=== PATIENT | female | born 1950 | race Caucasian/White ===

== ENCOUNTER 2020-11-30 11:22 | Emergency (ER) | payer SELFPAY ==
[2020-11-30] VITALS (15 sets, daily range): BP systolic 124–189; BP diastolic 76–96; PULSE 55–77; RESP 14–33; TEMP 36.2; O2SAT 95–100
--- NOTE | 2020-11-30 11:43 | DI.RAD.S_ITS ---
PROCEDURE: XR CHEST 1V INDICATIONS: chest pain TECHNIQUE: One view of the chest was acquired. COMPARISON: None. FINDINGS: Surgical changes and devices: None. Lungs and pleura: Lungs are clear. No pleural effusions or pneumothorax. Mediastinum: The cardiac contours are within normal limits. The aorta demonstrates calcification and tortuosity. Bones and chest wall: No suspicious bony lesions. Overlying soft tissues appear unremarkable. IMPRESSION: Portable chest within normal limits. Dictated by: Alex Martin M.D. on 11/30/2020 at 10:59 Approved by: Alex Martin M.D. on 11/30/2020 at 10:59
--- NOTE | 2020-11-30 11:51 | ED_ITS ---
HPI - Chest Pain General Chief Complaint: Chest Pain Stated Complaint: hot pain in chest, radiated to left arm Time Seen by Provider: 11/30/20 11:40 Source: patient Mode of arrival: Ambulatory Limitations: no limitations History of Present Illness HPI narrative: Patient is a 69-year-old female who is here for evaluation of burning in her chest. She states that she was woken last evening with burning in the center of her chest and also heaviness in her left arm. She states she thinks that is that it lasted approximately 30 minutes and then seemed to resolve. At some point it returned. She is unsure exactly when that was but she thought was some point this morning. She did admit that it was not as bad as what it was last evening. When she arrived here in the emergency department she stated that she was still having symptoms but by the time I evaluated her she thought the symptoms had completely resolved. She reports no other associated symptoms. Does not change with touching it. No change with moving. Has never had anything like this in the past. States she does have a history of high blood pressure but takes no medications for this. Related Data Home Medications Medication Instructions Recorded Confirmed calcium carb-vitamin D3 ER 600 mg 1 tab PO DAILY 11/30/20 11/30/20 (1,500 mg)-500 unit tablet,ER 24 hr Allergies Allergy/AdvReac Type Severity Reaction Status Date / Time No Known Drug Allergies Allergy Verified 11/30/20 11:41 Review of Systems Constitutional Constitutional: Denies fever(s) and Denies headache(s) Eyes Eyes: Reports system reviewed and no additional complaints, except as documented ENT Ears, Nose, Mouth, and Throat: Denies headache(s) Cardiovascular Cardiovascular: Reports as per HPI Respiratory Respiratory: Reports system reviewed and no additional complaints, except as doc umented Gastrointestinal Gastrointestinal: Reports system reviewed and no additional complaints, except as documented Genitourinary Genitourinary: Reports system reviewed and no additional complaints, except as documented Musculoskeletal Musculoskeletal: Reports system reviewed and no additional complaints, except as documented and Denies back pain Integumentary/Breasts Skin/Breast: Reports system reviewed and no additional complaints, except as documented Neurologic Neurologic: Denies headache(s) Endocrine Endocrine: Reports system reviewed and no additional complaints, except as documented Hematologic/Lymphatic On Anticoagulants: No Allergic/Immunologic Allergic/Immunologic: Reports system reviewed and no additional complaints, except as documented Patient History Medical History Hypertension Social History Smoking Status: Current every day smoker Smoking Status: Current every day smoker alcohol intake frequency: 0-2 drinks per day Substance Use Type: does not use Exam Initial Vital Signs Initial Vital Signs: Vital Signs Temperature 97.1 F L 11/30/20 11:36 Pulse Rate 70 11/30/20 11:36 Respiratory Rate 14 11/30/20 11:36 Blood Pressure 189/96 H 11/30/20 11:36 Pulse Oximetry 99 11/30/20 11:36 Const General: cooperative, comfortable and well developed HENMT Head: normal to inspection and normocephalic Resp Effort & Inspection: normal respiratory effort Auscultation: clear to auscultation bilaterally Cardio Rate: regular rate Rhythm: regular rhythm GI Inspection: normal to inspection Palpation: soft Skin General: no rashes or lesions noted Neuro General: patient alert, patient awake, patient oriented x3 and moves all extremities Extrem General: normal to inspection and capillary refill normal Psych Appearance: grossly normal and well kempt Scores HEART Score Heart Score history: Moderately Suspicious Heart Score EKG: Normal Heart Score Age: > or = 65 years old Heart Score risk factors: 1-2 risk factors Heart Score troponin: < or = to normal limit Heart Score Total: 4 Course Orders Ordered: ED Orders 11/30/20 11:43 XR chest 1V Stat Complete Blood Count AUTO DIFF Stat Comprehensive Metabolic Panel Stat Lipase Stat Magnesium Stat NT-proBNP (BNP-Adult 18+) Stat Troponin & CK Cardiac Panel Stat EKG-12 Lead Stat 11/30/20 12:25 COVID19 - ADMIT ([employer] swab/PCR) Stat 11/30/20 13:48 Troponin & CK Cardiac Panel Stat Discontinued Medications Aspirin (Aspirin 81 Mg Chew Tab) 324 mg PO NOW ONE Stop: 11/30/20 11:44 Last Admin: 11/30/20 12:02 Dose: 324 mg Documented by: MANUEL Nitroglycerin (Nitroglycerin 0.4 Mg Sl Tab) 0.4 mg SL [id number] PRN PRN Reason: Chest Pain Last Admin: 11/30/20 12:02 Dose: 0.4 mg Documented by: MANUEL Vital Signs Vital signs: Vital Signs - 8 hr 11/30/20 11:36 11/30/20 11:46 11/30/20 12:00 Temperature 97.1 F L Pulse Rate 70 70 63 Respiratory Rate 14 33 H 16 Blood Pressure 189/96 H Pulse Oximetry 99 100 98 11/30/20 12:06 11/30/20 12:15 11/30/20 12:20 Temperature Pulse Rate 70 77 66 Respiratory Rate 26 H 29 H 18 Blood Pressure 163/87 H 132/80 Pulse Oximetry 100 95 95 11/30/20 12:30 11/30/20 12:45 11/30/20 13:00 Temperature Pulse Rate 64 68 58 L Respiratory Rate 17 23 21 Blood Pressure 137/79 124/76 Pulse Oximetry 97 97 98 11/30/20 13:15 11/30/20 13:30 11/30/20 13:45 Temperature Pulse Rate 70 55 L 63 Respiratory Rate 28 H 19 24 Blood Pressure Pulse Oximetry 99 99 99 11/30/20 14:00 11/30/20 14:15 11/30/20 14:30 Temperature Pulse Rate 59 L 61 63 Respiratory Rate 23 17 20 Blood Pressure Pulse Oximetry 100 99 100 MDM - Chest Pain Lab Data Attestation: I reviewed the patient's lab results. Result diagrams: 11/30/20 11:43 11/30/20 11:43 Labs: Lab Results 11/30/20 11/30/20 11/30/20 Range/Units 11:43 11:43 11:43 WBC 5.0 (4.5-11.0) X10^3/uL RBC 4.83 (4.0-5.2) X10^6/uL Hgb 14.2 (12.0-16.0) g/dL Hct 42.5 (36-46) % MCV 87.8 (80-100) fL MCH 29.3 (26-34) PG MCHC 33.4 (30-36) % RDW 13.0 (11.6-14.8) % Plt Count 236 (150-400) X10^3/uL Neut % (Auto) 47.5 L (50-75) % Lymph % (Auto) 42.5 H (25-40) % [place] % (Auto) 6.6 (3-14) % Eos % (Auto) 3.2 (2-4) % Baso % (Auto) 0.2 (0-2) % Neut # (Auto) 2400 (3093-9653) /uL Lymph # (Auto) 2100 (3908-7031) /uL [place] # (Auto) 300 (0-900) /uL Eos # (Auto) 200 (0-450) /uL Baso # (Auto) 0 (0-100) /uL Sodium 139 (137-145) mmol/L Potassium 3.8 (3.4-5.1) mmol/L Chloride 104 (98-107) mmol/L Carbon Dioxide 28 (22-32) mmol/L BUN 15 (7-17) mg/dL Creatinine 0.82 (0.52-1.04) mg/dL Estimated GFR > 60.0 (>60) mL/min BUN/Creatinine Ratio 18.3 (6-22) Glucose 106 (80-110) mg/dL Calcium 9.7 (8.4-10.2) mg/dL Magnesium 2.2 (1.6-2.3) mg/dL Total Bilirubin 1.1 (0.2-1.3) mg/dL AST 30 (14-36) IU/L ALT 21 (<35) IU/L Alkaline Phosphatase 79 (38-126) U/L Total Creatine Kinase 42 (30-135) U/L CK-MB (CK-2) TNP CK-MB (CK-2) Rel Index TNP Troponin I < 0.012 (0.01-0.034) ng/mL NT-Pro-B Natriuret Pep 30 (<125) pg/mL Total Protein 7.0 (6.3-8.2) g/dL Albumin 4.3 (3.5-5.0) g/dL Globulin 2.7 (1.7-4.1) g/dL Albumin/Globulin Ratio 1.6 (1.0-2.8) Lipase 91 (23-300) U/L SARS-CoV-2 (PCR) (Negative) 11/30/20 11/30/20 Range/Units 12:25 13:48 WBC (4.5-11.0) X10^3/uL RBC (4.0-5.2) X10^6/uL Hgb (12.0-16.0) g/dL Hct (36-46) % MCV (80-100) fL MCH (26-34) PG MCHC (30-36) % RDW (11.6-14.8) % Plt Count (150-400) X10^3/uL Neut % (Auto) (50-75) % Lymph % (Auto) (25-40) % [place] % (Auto) (3-14) % Eos % (Auto) (2-4) % Baso % (Auto) (0-2) % Neut # (Auto) (0333-0486) /uL Lymph # (Auto) (4195-7520) /uL [place] # (Auto) (0-900) /uL Eos # (Auto) (0-450) /uL Baso # (Auto) (0-100) /uL Sodium (137-145) mmol/L Potassium (3.4-5.1) mmol/L Chloride (98-107) mmol/L Carbon Dioxide (22-32) mmol/L BUN (7-17) mg/dL Creatinine (0.52-1.04) mg/dL Estimated GFR (>60) mL/min BUN/Creatinine Ratio (6-22) Glucose (80-110) mg/dL Calcium (8.4-10.2) mg/dL Magnesium (1.6-2.3) mg/dL Total Bilirubin (0.2-1.3) mg/dL AST (14-36) IU/L ALT (<35) IU/L Alkaline Phosphatase (38-126) U/L Total Creatine Kinase 41 (30-135) U/L CK-MB (CK-2) TNP CK-MB (CK-2) Rel Index TNP Troponin I < 0.012 (0.01-0.034) ng/mL NT-Pro-B Natriuret Pep (<125) pg/mL Total Protein (6.3-8.2) g/dL Albumin (3.5-5.0) g/dL Globulin (1.7-4.1) g/dL Albumin/Globulin Ratio (1.0-2.8) Lipase (23-300) U/L SARS-CoV-2 (PCR) Negative (Negative) Imaging Data Chest x-ray: Radiologist's Impression: [address] [id number] ReportSigned Patient: Marah Joyner#: [id number]: 2Acct:[id number]/Sex: 69 / FDate of Service: 11/30/20Loc: EDAccession Number: [id number] Procedure: XR chest 1V Ordering Provider: Javier Garcia D.O. PROCEDURE: XR CHEST 1V INDICATIONS: chest pain TECHNIQUE: One view of the chest was acquired. COMPARISON: None. FINDINGS: Surgical changes and devices: None. Lungs and pleura: Lungs are clear. No pleural effusions or pneumothorax. Mediastinum: The cardiac contours are within normal limits. The aorta demonstrates calcification and tortuosity. Bones and chest wall: No suspicious bony lesions. Overlying soft tissues appear unremarkable. IMPRESSION: Portable chest within normal limits. Dictated by: Alex Martin M.D. on 11/30/2020 at 10:59 Approved by: Alex Martin M.D. on 11/30/2020 at 10:59 ECG Data Attestation: I personally reviewed and interpreted this ECG as follows: Prior ECG tracings: not available for review Interpretation: Sinus rhythm Ventricular rate is 63 Normal axis Normal QRS Normal QTC No ST T wave changes MDM Narrative Medical decision making narrative: Patient's EKG is unremarkable. Troponins negative x2. Had a discussion with her regarding her symptoms. I did discuss her risk of coronary artery disease. She does have a heart score of 4. She does not take any medications for hypertension but she states she has been told that she has had high blood pressure in the past. We did discuss my concern given her clinical presentation. We did discuss the need for continued risk stratification. We did discuss being admitted to the hospital and I did offer this to her however she stated that she would like to be discharged home. She did express understanding and agreement with the risks and benefits of this. She was alert oriented x3. GCS of 15 in my opinion has capacity make decisions. She was given strict return precautions and will contact her primary doctor when she returns home. Discharge Plan Departure Patient Disposition: Home Clinical Impression: Chest pain Instructions: DI for Chest Pain Activity Restrictions/Additional Instructions: After our discussion about being admitted to the hospital versus being discharged home you opted to be discharged home. We did discuss the risks and benefits of both these options. I recommend that you contact your primary doctor as you will need further workup when you return home. Please return to the emergency department for any new or worsening symptoms. Prescriptions: No Action All Day Calcium 600 mg(1,500mg) -500 unit Tablet Extended Release 24 Hr 1 tab PO DAILY RF: 0
[2020-11-30 11:55] LABS: Add Manual Diff / Slide Review NO; Basophils Absolute Auto 0 /uL (0-100); Basophils Percent Auto 0.2 % (0-2); Eosinophils Absolute Auto 200 /uL (0-450); Eosinophils Percent Auto 3.2 % (2-4); Hematocrit 42.5 % (36-46); Hemoglobin 14.2 g/dL (12.0-16.0); Lymphocytes Absolute Auto 2100 /uL (1100-4500); Lymphocytes Percent Auto 42.5 % (25-40); Mean Corpuscular HGB Conc 33.4 % (30-36); Mean Corpuscular Hemoglobin 29.3 PG (26-34); Mean Corpuscular Volume 87.8 fL (80-100); Monocytes Absolute Auto 300 /uL (0-900); Monocytes Percent Auto 6.6 % (3-14); Neutrophils Absolute Auto 2400 /uL (1500-7000); Neutrophils Percent Auto 47.5 % (50-75); Platelet Count 236 X10^3/uL (150-400); Red Blood Cell Count 4.83 X10^6/uL (4.0-5.2)
[2020-11-30] MEDS: NITROGLYCERIN 0.4 MG SL TAB SL (12:02)
[2020-11-30] MEDS: ASPIRIN 81 MG CHEW TAB 324 MG PO (12:02)
[2020-11-30 12:07] LABS: Alanine Aminotransferase 21 IU/L (<35); Albumin 4.3 g/dL (3.5-5.0); Albumin Globulin Ratio 1.6 (1.0-2.8); Alkaline Phosphatase 79 U/L (38-126); Aspartate Aminotransferase 30 IU/L (14-36); BUN Creatinine Ratio 18.3 (6-22); Bilirubin Total 1.1 mg/dL (0.2-1.3); Blood Urea Nitrogen 15 mg/dL (7-17); Calcium 9.7 mg/dL (8.4-10.2); Carbon Dioxide 28 mmol/L (22-32); Chloride 104 mmol/L (98-107); Creatine Kinase 42 U/L (30-135); Estimated Glomerular Filt Rate > 60.0 mL/min (>60); Globulin 2.7 g/dL (1.7-4.1); Glucose 106 mg/dL (80-110); HEMOLYSIS 17 (0-50); Lipase 91 U/L (23-300); Magnesium 2.2 mg/dL (1.6-2.3); Potassium 3.8 mmol/L (3.4-5.1); Sodium 139 mmol/L (137-145)
[2020-11-30 12:16] LABS: NT-proBNP (BNP-Adult 18+) 30 pg/mL (<125)
[2020-11-30 12:19] LABS: Troponin I < 0.012 ng/mL (0.01-0.034)
[2020-11-30 13:25] LABS: COVID19 - ADMIT (NP swab/PCR) Negative (Negative)
[2020-11-30 14:06] LABS: Creatine Kinase 41 U/L (30-135)
[2020-11-30 14:18] LABS: Troponin I < 0.012 ng/mL (0.01-0.034)
== END 2020-11-30 14:52 | disposition home or self-care (01) ==
PROVIDERS: Emergency Provider Emergency Medicine
DX: R07.9 Chest pain, unspecified (principal); Z20.822 Contact with and (suspected) exposure to COVID-19
CPT/HCPCS: 36415; 71045; 80053; 82550; 83690; 83735; 83880; 84484; 85025; 87635; 93005; 93010; 99284; C9803